=== PATIENT | female | born 2000 | race Two or more races ===

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

== ENCOUNTER 2022-11-01 11:04 | Emergency (ER) | payer MEDICAID ==
[~2022-11-01] VITALS: Ht 165.1 cm; Wt 105.0 kg
[~2022-11-01 11:04] MED LIST: VENL150C4 MT
[2022-11-01 11:27] VITALS: BP 147/88
[2022-11-01] MEDS ORDERED: NAPR-681 PO (12:57)
[2022-11-01] MEDS ORDERED: VENL75CA3 PO (12:57)
[2022-11-01] MEDS ORDERED: D-ME473S50 PO (12:57)
== END 2022-11-01 13:47 | disposition home or self-care (01) ==
LOC: ER 11:04
DX: J06.9 Acute upper respiratory infection, unspecified (principal); Z88.0 Allergy status to penicillin; Z76.0 Encounter for issue of repeat prescription; Z98.890 Other specified postprocedural states; Z86.59 Personal history of other mental and behavioral disorders
CPT/HCPCS: 81025; 99283